=== PATIENT | male | born 1990 | race Caucasian/White ===

== ENCOUNTER 2023-02-12 10:48 | Outpatient (CLI) | payer BC | END 2023-02-12 10:49 | disposition home or self-care (01) | LOC: RAD 10:48 | PROVIDERS: ATTEND Otolaryngology Plastic Surgery within the Head & Neck | DX: R13.12 Dysphagia, oropharyngeal phase (principal); R63.30 Feeding difficulties, unspecified | CPT/HCPCS: 71046; 74230 ==